=== PATIENT | female | born 1945 | race Caucasian/White ===

== ENCOUNTER 2016-06-04 06:11 | Day surgery (SDC) | payer OTHER ==
--- NOTE | 2016-05-16 16:50 | PREOPHP ---
DATE OF ADMISSION: 05/21/2016 HISTORY OF PRESENT ILLNESS: This 71-year-old patient is admitted for elective cataract surgery of t he left eye. The patient has had decreased vision for approximately 1 year. The patient denies nahed or history of eye disease or injury. The patient's systemic history is positive for insulin-depende nt diabetes mellitus and hypercholesterolemia. CURRENT MEDICATIONS INCLUDE: 1. Insulin. 2. Metformin. 3. Aspirin. 4. Atorvastatin. 5. The patient has been instructed to stop the use of the aspirin 1 week prior to surgery. PHYSICAL EXAMINATION: The visual acuity best corrected is 20/70 in the right eye and 20/200 in the left eye. Slit lamp examination reveals anterior cortical nuclear sclerotic and posterior subcapsul ar cataract changes in both eyes with the left eye having a denser central posterior subcapsular opa city. Applanation tonometry is 19 mmHg. Examination of the retina is obscured by the cataract, but appears grossly within normal limits. DIAGNOSIS: Cataract, left eye. PLAN: Cataract extraction with lens implant, left eye. The risks and alternatives to the surgery h ave been discussed with the patient as well as the ability to achieve better visual outcome leading to greater ability to perform activities of daily living. The patient understands this and desires to proceed with surgery. Dictated By: EREN WHIPPLE/COLTON Conf#: [id number] DID#: [id number]
--- NOTE | 2016-05-21 08:18 | HPN ---
Date/Time of Note Date/Time of Note DATE: 05/21/16 TIME: 08:18 Interval H&P Admission Note Pt. seen H&P reviewed: No system changes EREN THOMAS MD May 21, 2016 08:18
[2016-06-03 11:34] VITALS: BMI 28.4
[~2016-06-04] VITALS: Ht 142.2 cm; Wt 51.7 kg
[2016-06-04] VITALS (8 sets, daily range): BP systolic 132–204; BP diastolic 58–95; PULSE 56–78; RESP 12–18; Ht 142.2 cm; Wt 51.7 kg
[~2016-06-04 06:11] MED LIST: BENZ100C70 PO; CIPROFLOXACIN 0.3% 2.5 ML OPH OPER SCH; CODE118S PO; CYCLOPENTOLATE/PHENYLEPH 2 ML OPH OPER SCH; DICLOFENAC 0.1% 2.5 ML OPH OPER SCH; LORA-186 PO; TROPICAMIDE 1% 2 ML OPH OPER SCH
[2016-06-04] MEDS ORDERED: ASPI81TA3 PO (08:53)
[2016-06-04] MEDS ORDERED: BENA10TA48 PO (08:53)
[2016-06-04] MEDS ORDERED: SITA50TA2 PO (08:54)
[2016-06-04] MEDS ORDERED: LANT3I SC (08:54)
[2016-06-04] MEDS ORDERED: GLIP-95 PO (08:54)
[2016-06-04] MEDS ORDERED: METF500T4 PO (08:55)
[2016-06-04] MEDS ORDERED: [UNRECOGNIZED DRUG - CODE] OP (08:56)
[2016-06-04] MEDS ORDERED: MONT10TA21 PO (08:56)
[2016-06-04] MEDS ORDERED: FENO145T25 PO (08:57)
[2016-06-04] MEDS ORDERED: CHOL100062 PO (08:57)
[2016-06-04] MEDS ORDERED: TRAZ50TA18 PO (08:57)
[2016-06-04] MEDS ORDERED: INSULIN REGULAR, HUMAN 100 UNIT/1 ML 3ML VIAL SC ONE (09:00)
[2016-06-04] MEDS ORDERED: LIDOCAINE 4% (MPF) 5 ML INJ ONE (09:52)
[2016-06-04] MEDS ORDERED: DEXAMETHASONE 4 MG/ML 1 ML INJ ONE (09:52)
[2016-06-04] MEDS ORDERED: CARBACHOL 0.01% 1.5 ML OPH INJ ONE (09:52)
[2016-06-04] MEDS ORDERED: HYALURONATE/CHONDROITIN 1ML OPH INJ ONE (09:52)
[2016-06-04] MEDS ORDERED: PROPOFOL 20 ML ONE (10:00)
[2016-06-04] MEDS ORDERED: CEFAZOLIN 1 GM INJ INJ ONE (10:26)
[2016-06-04] MEDS ORDERED: LABETALOL HCL 20MG INJ IV PRN (10:30)
[2016-06-04] MEDS ORDERED: FENTAnyl 50 MCG/ML VIAL IV PRN ×2 (10:30)
[2016-06-04] MEDS ORDERED: ONDANSETRON 4 MG INJ IV PRN (10:30)
[2016-06-04] MEDS ORDERED: MEPERIDINE 25 MG INJ IV PRN (10:30)
[2016-06-04] MEDS ORDERED: HYDROmorphONE (0.2 MG/ML) 10ML SYG IV PRN ×3 (10:30)
[2016-06-04] MEDS ORDERED: hydrALAzine 20 MG INJ IV PRN (10:30)
--- NOTE | 2016-06-04 12:54 | OPR ---
DATE OF OPERATION: 06/04/2016 PREOPERATIVE DIAGNOSIS: Cataract, left eye. POSTOPERATIVE DIAGNOSIS: Cataract, left eye. SURGEON: Eren Dyson MD BUSINESS SUPERVISOR: ANESTHESIA: Local standby. ANESTHESIOLOGIST: Dr. Sandhu OPERATION: Cataract extraction with lens implant, left eye. PROCEDURE: The patient was brought to the operating room and placed on the table with an IV in plac e and the patient attached to an nuclear monitoring technician. Oxygen was given via face mask. After some intravenous sedation was administered, local anesthesia was given using Xylocaine 2% with epinephrine, mixed with Marcaine 0.5%. This was given in a lid block and retrobulbar injection. The patient was then prepped and draped in the usual sterile manner. A wire lid speculum was inserted between the lids of the left eye. A SuperBlade was used to enter th e anterior chamber at the corneoscleral limbus at the 10:30 o'clock position. A separate incision wa s made using a 3.0-mm keratome which entered the corneoscleral junction at the 12 o'clock position. Through this 3-mm opening, an irrigating cystotome was introduced into the anterior chamber. The gilbert mber was filled with Viscoat and an anterior capsulotomy was performed. Balanced salt solution was t hen used for hydrodissection of the lens. A phacoemulsification handpiece was then brought into the field and introduced into the anterior chamber. The lens nucleus was emulsified using a deep groove and cracking the nucleus into quadrants. Following this, each quadrant was aspirated and emulsified at the pupillary margin. After this was completed, the irrigation/aspiration handpiece was brought to the field, introduced i nto the posterior chamber, and the lens cortical material was removed. When this was completed, eliza tional Viscoat was injected into the anterior and posterior chambers. The 3-mm opening had its internal lips enlarged, and then the posterior chamber intraocular lens sandra suring 19.0 diopters ([employer] [id number]) was then injected into the posterior chamb er using the lens injector system. After the leading haptic was introduced into the capsular bag and the lens optic was present in the center of the eye, the injector was removed and the trailing hapt ic was grasped with non-toothed forceps and introduced into the capsular fold superiorly. A Sinskey hook was then used to rotate the intraocular lens so that the lips were oriented in the horizontal m eridian. One 10-0 nylon suture was placed across the wound. Prior to tying, the irrigation/aspiration handpiece was reintroduced into the anterior chamber to re move the Viscoat. Miochol was instilled to constrict the pupil, and then the 10-0 nylon suture was t ied. The ends were cut short and then the knot was buried. Then, 0.5 mL of dexamethasone and 0.5 mL of Ancef were injected into the sub-Tenon space in the infe rior fornix. Ciloxan drops were then placed on the surface of the eye. The speculum was removed and a patch was applied. The patient then left the operating room in satisfactory condition. Dictated By: EREN WHIPPLE/COLTON Conf#: [id number] DID#: [id number]
== END 2016-06-04 12:21 | disposition home or self-care (01) ==
LOC: SDS 06:11
PROVIDERS: ATTEND Ophthalmology
DX: H25.812 Combined forms of age-related cataract, left eye (principal); E11.9 Type 2 diabetes mellitus without complications; Z79.4 Long term (current) use of insulin; E78.00 Pure hypercholesterolemia, unspecified; I10 Essential (primary) hypertension; G51.0 Bell's palsy
CPT/HCPCS: 66984; 82962; J0360; J0690; J1100; J1815; V2632

== ENCOUNTER 2018-01-02 10:22 | Emergency (ER) | END 2018-01-02 13:23 | disposition home or self-care (01) ==